=== PATIENT | male | born 1975 | race Caucasian/White ===

== ENCOUNTER 2019-02-16 14:46 | Inpatient (IN) | payer OTHER ==
[2019-02-16 20:14] VITALS: BMI 23.8
--- NOTE | 2019-02-16 21:33 | HP ---
CIWA Score Nausea/Vomitin Muscle Tremors: 4-Moderate,w/Arms Extend Anxiety: 3 Agitation: 4-Moderately Restless Paroxysmal Sweats: 3 (Increased facial moisture) Orientation: 1-Uncertain about Date Tacttile Disturbances: 0-None Auditory Disturbances: 0-None Visual Disturbances: 0-None Headache: 0-None Present CIWA-Ar Total Score: 18 - Admission Criteria OASAS Guidelines: Admission for Medically Managed Detox: Requires at least one of the followin. CIWA greater than 12 2. Seizures within the past 24 hours 3. Delirium tremens within the past 24 hours 4. Hallucinations within the past 24 hours 5. Acute intervention needed for co occurring medical disorder 6. Acute intervention needed for co occurring psychiatric disorder 7. Severe withdrawal that cannot be handled at a lower level of care (continued vomiting, continued diarrhea, abnormal vital signs) requiring intravenous medication and/or fluids 8. Patient presents the following: CIWA greater than 12 Admission Criteria Met: Admission criteria met Admission ROS [facility] Chief Complaint: Alcohol withdrawal. Allergies/Adverse Reactions: Allergies Allergy/AdvReac Type Severity Reaction Status Date / Time No Known Allergies Allergy Verified 02/16/19 20:06 History of Present Illness: [facility] presentation for this 43 you w/ alcohol withdrawal requesting admission to detox. Alcohol use since age 28. Current use 1 pint/day x 8 years. Sometimes drinks more. Nicotine use since age 40. Usually only smokes when drinks. Denies seizures or blackouts. Longest length of sobriety 2 months - 1 year ago. PMHx: Kidney stones- last about 8 months ago: Urine problems on tamsulosin; Back pain x 8 years = states arthritis; mild asthma 1 year ago - rx'd w/ MDI - but no repeat wheeze/SOB. MHHx: Nervousness/anxiety; Occ depression. Denies thoughts of harming self or others. Patient Name: Barb Maynard Date: 1975 Address: [address] [place] [address] Sex: Male Rx Written Rx Dispensed Drug Quantity Days Supply Prescriber Name 04/07/2018 04/07/2018 tramadol hcl 50 mg tablet 60 30 Vera Begum MD Search Terms: Barb Maynard, 1975 Search Date: 02/16/2019 09:31:39 PM States Searched: [place], [place], [place], [place], [place], [place], [place] The Drug Utilization Report below displays the controlled substance prescriptions, if any, that were dispensed in the indicated state(s). The information displayed on this report is compiled from requests submitted to other states' PMPs, and accurately reflects the information as returned by them. Blank brandon indicate data not provided by other state. This report was requested by: Sravani Hsu | Reference #: [id number] Exam Limitations: No Limitations - Ebola screening Have you traveled outside of the country in the last 21 days: No (N) Have you had contact with anyone from an Ebola affected area: No Have you been sick,other than usual withdrawal symptoms: No (Denies recent exposure to measles. ) Do you have a fever: No - Review of Systems Constitutional: Chills, Diaphoresis EENT: reports: Blurred Vision Respiratory: reports: No Symptoms reported Cardiac: reports: No Symptoms Reported GI: reports: Nausea, Indigestion (Heart burn only when drinking), Abdominal cramping : reports: Burning (w/ urination x 1 week) Musculoskeletal: reports: Back Pain (Chronic LBP x 8 years. Increases w/ lifting/bending, sitting too long. Improves w/ rest. Currently sharp and a "10") Integumentary: reports: No Symptoms Reported Neuro: reports: Tremors, Weakness (whole body feels weak.) Endocrine: reports: Increased Thirst Hematology: reports: No Symptoms Reported Psychiatric: reports: Judgement Intact, Orientated x3 (Missed date by 1), Anxious Patient History - PPD History Previous Implant?: Yes Documented Results: Negative w/o proof Implanted On Prior [facility] Admission?: Yes PPD to be Administered?: Yes - Smoking Cessation Smoking history: Current every day smoker Have you smoked in the past 12 months: Yes Aproximately how many cigarettes per day: 4 Hx Chewing Tobacco Use: No Initiated information on smoking cessation: Yes 'Breaking Loose' booklet given: 02/16/19 - Substance & Tx. History Hx Alcohol Use: Yes Hx Substance Use: Yes Substance Use Type: Alcohol Hx Substance Use Treatment: No (Has tried to stop on own) - Substances abused Alcohol Substance route: Oral Frequency: Daily Amount used: 1 [place] Age of first use: 28 Date of last use: 02/16/19 Admission Physical Exam BHS - Vital Signs Vital Signs: Vital Signs - 24 hr 02/16/19 20:10 Temperature 98.7 F Pulse Rate 92 H Respiratory 18 Rate Blood Pressure 155/102 H - Physical General Appearance: Yes: Nourished, Moderate Distress, Tremorous, Sweating ( Increased facial moisture) HEENTM: Yes: EOMI, Hearing grossly Normal, Normocephalic, Normal Voice, JEROD, Pharynx Normal Respiratory: Yes: Lungs Clear, Normal Breath Sounds, No Respiratory Distress Neck: Yes: No masses,lesions,Nodules, Supple Breast: Yes: Breast Exam Deferred Cardiology: Yes: Regular Rhythm, Regular Rate, S1, S2 Abdominal: Yes: Flat, Soft, Increased Bowel Sounds, Tenderness (LUQ and mid- lower quad tenderness upon palpation) Genitourinary: Yes: Burning Back: Yes: Normal Inspection Musculoskeletal: Yes: full range of Motion, Gait Steady Extremities: Yes: Normal Capillary Refill, Tremors (Tremors at rest which grossly increase w/ arm elevation) 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 NML intact, Alert, Motor Strength 5/5, Normal Response Integumentary: Yes: Normal Color, Warm, Diaphoresis (Increased facial moisture) Lymphatic: Yes: Within Normal Limits - Diagnostic (1) Alcohol dependence with uncomplicated withdrawal Current Visit: Yes Status: Acute (2) Nicotine abuse Current Visit: Yes Status: Chronic (3) History of kidney stones Current Visit: No Status: Chronic (4) History of asthma Current Visit: No Status: Chronic (5) Abdominal tenderness Current Visit: Yes Status: Chronic Qualifiers: Abdominal location: unspecified location Presence of rebound: absent Qualified Code(s): R10.819 - Abdominal tenderness, unspecified site Comment: LUQ and lower mid-quad tenderness w/o guarding or rebound (6) Urinary problem in male Current Visit: Yes Status: Chronic Comment: Urinary burning, on tamsulosin Cleared for Admission S - Detox or Rehab S Level of Care: Medically Managed Detox Regimen/Protocol: Librium Claeared for Rehab Admission: No Inpatient Rehab Admission - Rehab Decision to Admit Inpatient rehab admission?: No
[2019-02-16] MEDS ORDERED: BISMUTH SUBSALICYLATE 524 MG/30 ML UD PO PRN (22:04)
[2019-02-16] MEDS ORDERED: MENTHOL/PHENOL 1 EACH UD MM PRN (22:04)
[2019-02-16] MEDS ORDERED: IBUPROFEN 400 MG TABLET (FP) PO PRN (22:04)
[2019-02-16] MEDS ORDERED: MAGNESIUM HYDROX 2400MG/30ML ORAL SUSPENSION 30 ML CUP PO PRN (22:04)
[2019-02-16] MEDS ORDERED: ACETAMINOPHEN 325 MG TABLET (FP) PO PRN ×2 (22:04)
[2019-02-16] MEDS ORDERED: MAGNESIUM CITRATE 300 ML BOTTLE PO PRN (22:04)
[2019-02-16] MEDS ORDERED: METHOCARBAMOL 500 MG TABLET PO PRN (22:04)
[2019-02-16] MEDS ORDERED: chlordiazePOXIDE HCL 25 MG CAPSULE PO PRN (22:04)
[2019-02-16] MEDS ORDERED: MELATONIN 5 MG TABLETS PO PRN (22:04)
[2019-02-16] MEDS ORDERED: NAPROXEN 500 MG TABLET (FP) PO PRN (22:08)
[2019-02-16] MEDS: chlordiazePOXIDE HCL 25 MG CAPSULE PO SCH (23:55)
[2019-02-17] MEDS: chlordiazePOXIDE HCL 25 MG CAPSULE PO SCH ×4 (05:52→22:12)
[2019-02-17] MEDS: NICOTINE POLACRILEX 2 MG GUM BUC PRN ×2 (06:00→18:46)
[2019-02-17] MEDS: TAMSULOSIN HCL 0.4 MG CAP PO SCH (09:26)
[2019-02-17] MEDS: PRENATAL VITAMINS W/ FOLIC ACID TABLET (FP) PO SCH (09:27)
[2019-02-17 10:52] LABS: ALBUMIN 4.5 g/dl (3.4-5.0); BILIRUBIN,TOTAL 1.1 mg/dL (0.2-1); BLOOD UREA NITROGEN 16.2 mg/dL (7-18); CALCIUM 9.5 mg/dL (8.5-10.1); CREATININE 0.9 mg/dL (0.55-1.3); POTASSIUM 3.6 mmol/L (3.5-5.1); TOT PROT 8.7 g/dl (6.4-8.2)
[2019-02-17 11:07] LABS: URINE APPEARANCE CLEAR; URINE BILIRUBIN NEGATIVE (NEGATIVE); URINE COLOR YELLOW; URINE GLUCOSE (UA) NEGATIVE (NEGATIVE); URINE KETONE NEGATIVE (NEGATIVE); URINE LEUK ESTERASE NEGATIVE (NEGATIVE); URINE NITRITE NEGATIVE (NEGATIVE); URINE PROTEIN NEGATIVE (NEGATIVE); URINE UROBILINOGEN 0.2 mg/dL (0.2-1.0)
[2019-02-17 11:16] LABS: HEMATOCRIT 50.4 % (35.4-49); HEMOGLOBIN 17.2 GM/dL (11.7-16.9); MCH 31.9 pg (25.7-33.7); MEAN CELL VOLUME 93.8 fl (80-96); MEAN PLT VOLUME 8.1 fl (7.5-11.1); RBC 5.38 M/mm3 (4.00-5.60); RDW 13.4 % (11.9-15.9); WHITE BLOOD COUNT 6.6 K/mm3 (4.0-10.0)
[2019-02-17 11:33] LABS: PLATELET COUNT 257 K/MM3 (134-434)
--- NOTE | 2019-02-17 12:44 | PN ---
S CIWA - CIWA Score Nausea/Vomitin-No Nausea/No Vomiting Muscle Tremors: 3 Anxiety: 2 Agitation: 2 Paroxysmal Sweats: 2 Orientation: 0-Oriented Tacttile Disturbances: 0-None Auditory Disturbances: 0-None Visual Disturbances: 0-None Headache: 2-Mild CIWA-Ar Total Score: 11 S Progress Note (SOAP) Subjective: c/o headache, sweats, shakes, and anxiety. Objective: 02/17/19 12:43 Vital Signs 02/17/19 02/17/19 06:26 09:42 Temperature 96.9 F L 98.6 F Pulse Rate 86 92 H Respiratory 18 18 Rate Blood Pressure 130/89 126/89 Lab Results WBC 6.6 K/mm3 (4.0-10.0) 02/17/19 07:40 RBC 5.38 M/mm3 (4.00-5.60) 02/17/19 07:40 Hgb 17.2 GM/dL (11.7-16.9) H 02/17/19 07:40 Hct 50.4 % (35.4-49) H 02/17/19 07:40 MCV 93.8 fl (80-96) 02/17/19 07:40 MCHC 34.0 g/dl (32.0-35.9) 02/17/19 07:40 RDW 13.4 % (11.9-15.9) 02/17/19 07:40 Plt Count 257 K/MM3 (134-434) 02/17/19 07:40 Sodium 138 mmol/L (136-145) 02/17/19 07:40 Potassium 3.6 mmol/L (3.5-5.1) 02/17/19 07:40 Chloride 100 mmol/L (98-107) 02/17/19 07:40 Carbon Dioxide 32 mmol/L (21-32) 02/17/19 07:40 Anion Gap 6 MMOL/L (8-16) L 02/17/19 07:40 BUN 16.2 mg/dL (7-18) 02/17/19 07:40 Creatinine 0.9 mg/dL (0.55-1.3) 02/17/19 07:40 Random Glucose 77 mg/dL (74-106) 02/17/19 07:40 Calcium 9.5 mg/dL (8.5-10.1) 02/17/19 07:40 Labs noted. Assessment: 02/17/19 12:43 AOX3, in no acute distress Full ROM, ambulating in the unit. Withdrawal symptoms. Plan: continue detox. increase fluids.
[2019-02-17] MEDS: THIAMINE HCL 100 MG TABLET (FP) PO SCH (22:12)
[2019-02-18] MEDS: chlordiazePOXIDE HCL 25 MG CAPSULE PO SCH ×3 (05:22→17:30)
[2019-02-18] MEDS: PRENATAL VITAMINS W/ FOLIC ACID TABLET (FP) PO SCH (10:26)
[2019-02-18] MEDS: TAMSULOSIN HCL 0.4 MG CAP PO SCH (10:26)
[2019-02-18] MEDS: NICOTINE POLACRILEX 2 MG GUM BUC PRN ×2 (11:12→19:50)
--- NOTE | 2019-02-18 13:50 | PN ---
S CIWA - CIWA Score Nausea/Vomitin-Mild Nausea/No Vomiting Muscle Tremors: 2 Anxiety: 2 Agitation: 2 Paroxysmal Sweats: 1-Minimal Palms Moist Orientation: 0-Oriented Tacttile Disturbances: 0-None Auditory Disturbances: 0-None Visual Disturbances: 0-None Headache: 2-Mild CIWA-Ar Total Score: 10 BHS Progress Note (SOAP) Subjective: CO POOR SLEEP ANXIETY SHAKINESS Objective: 02/18/19 13:48 Laboratory Tests 02/17/19 02/17/19 02/17/19 07:40 07:40 07:40 WBC 6.6 RBC 5.38 Hgb 17.2 H Hct 50.4 H MCV 93.8 MCH 31.9 MCHC 34.0 RDW 13.4 Plt Count 257 MPV 8.1 Sodium 138 Potassium 3.6 Chloride 100 Carbon Dioxide 32 Anion Gap 6 L BUN 16.2 Creatinine 0.9 Est GFR (CKD-EPI)AfAm 119.13 Est GFR (CKD-EPI)NonAf 102.79 Random Glucose 77 Calcium 9.5 Total Bilirubin 1.1 H AST 87 H ALT 100 H Alkaline Phosphatase 115 Total Protein 8.7 H Albumin 4.5 Total Amylase 36 Urine Color Urine Appearance Urine pH Ur Specific [place] Urine Protein Urine Glucose (UA) Urine Ketones Urine Blood Urine Nitrite Urine Bilirubin Urine Urobilinogen Ur Leukocyte Esterase RPR Titer Nonreactive 02/17/19 09:00 WBC RBC Hgb Hct MCV MCH MCHC RDW Plt Count MPV Sodium Potassium Chloride Carbon Dioxide Anion Gap BUN Creatinine Est GFR (CKD-EPI)AfAm Est GFR (CKD-EPI)NonAf Random Glucose Calcium Total Bilirubin AST ALT Alkaline Phosphatase Total Protein Albumin Total Amylase Urine Color Yellow Urine Appearance Clear Urine pH 6.0 Ur Specific [place] 1.015 Urine Protein Negative Urine Glucose (UA) Negative Urine Ketones Negative Urine Blood Negative Urine Nitrite Negative Urine Bilirubin Negative Urine Urobilinogen 0.2 Ur Leukocyte Esterase Negative RPR Titer Vital Signs - 24 hr 02/17/19 02/17/19 02/17/19 14:01 18:07 21:51 Temperature 96.5 F L 96.9 F L 98.7 F Pulse Rate 77 86 85 Respiratory 18 18 18 Rate Blood Pressure 130/87 113/67 112/75 02/18/19 02/18/19 02/18/19 00:30 03:30 06:46 Temperature 96.5 F L Pulse Rate 83 Respiratory 18 18 18 Rate Blood Pressure 100/67 02/18/19 02/18/19 09:09 13:14 Temperature 96.6 F L 98.5 F Pulse Rate 69 95 H Respiratory 20 16 Rate Blood Pressure 98/67 121/86 ALERT AMBULATING ORIENTED Assessment: 02/18/19 13:49 ETOH DEP IN WITHDRAWAL Plan: CONTINUE DETOX PROTOCOL
--- NOTE | 2019-02-18 16:54 | EKG ---
Test Reason : Blood Pressure : / mmHG Vent. Rate : 080 BPM Atrial Rate : 080 BPM P-R Int : 186 ms QRS Dur : 096 ms QT Int : 388 ms P-R-T Axes : 066 019 033 degrees QTc Int : 447 ms NORMAL SINUS RHYTHM WITH SINUS ARRHYTHMIA MINIMAL VOLTAGE CRITERIA FOR LVH, MAY BE NORMAL VARIANT BORDERLINE ECG NO PREVIOUS ECGS AVAILABLE Confirmed by MD FRED, SVITLANA ([id number]) on 02/18/2019 4:54:11 PM Referred By: Confirmed By:SVITLANA IBARRA MD
[2019-02-18] MEDS: chlordiazePOXIDE HCL 10 MG CAPSULE PO SCH (22:28)
[2019-02-18] MEDS: THIAMINE HCL 100 MG TABLET (FP) PO SCH (22:28)
[2019-02-18] MEDS ORDERED: chlordiazePOXIDE HCL 10 MG CAPSULE PO PRN (23:00)
[2019-02-19] MEDS: chlordiazePOXIDE HCL 10 MG CAPSULE PO SCH ×3 (06:31→17:14)
[2019-02-19] MEDS: PRENATAL VITAMINS W/ FOLIC ACID TABLET (FP) PO SCH (10:08)
[2019-02-19] MEDS: TAMSULOSIN HCL 0.4 MG CAP PO SCH (10:09)
[2019-02-19] MEDS: MAG HYDROX/AL HYDROX/SIMETH 30 ML UNIT-DOSE CUP PO PRN (10:39)
[2019-02-19] MEDS ORDERED: NICOTINE 14 MG/24 HOURS TOPICAL PATCH TD SCH (11:15)
[2019-02-19] MEDS: METHYL SALICYLATE/MENTHOL OINT 30 GM TUBE TP SCH ×2 (12:21→22:29)
--- NOTE | 2019-02-19 16:23 | PN ---
S CIWA - CIWA Score Nausea/Vomitin-No Nausea/No Vomiting Muscle Tremors: None Anxiety: 3 Agitation: 2 Paroxysmal Sweats: No Perspiration Orientation: 0-Oriented Tacttile Disturbances: 2-Mild Itch/Numbness/Burn Auditory Disturbances: 0-None Visual Disturbances: 2-Mild Sensitivity Headache: 0-None Present CIWA-Ar Total Score: 9 BHS Progress Note (SOAP) Subjective: Body Aches, Interrupted Sleep, Anxious. Objective: PATIENT A & O X 3, OBSERVED AMBULATING ON UNIT UNASSISTED. IN NO ACUTE DISTRESS. 02/19/19 16:21 Vital Signs Temperature 97.9 F 02/19/19 13:25 Pulse Rate 73 02/19/19 13:25 Respiratory Rate 18 02/19/19 13:25 Blood Pressure 135/97 02/19/19 13:25 O2 Sat by Pulse Oximetry (%) Laboratory Tests 02/17/19 02/17/19 02/17/19 07:40 07:40 07:40 WBC 6.6 RBC 5.38 Hgb 17.2 H Hct 50.4 H MCV 93.8 MCH 31.9 MCHC 34.0 RDW 13.4 Plt Count 257 MPV 8.1 Sodium 138 Potassium 3.6 Chloride 100 Carbon Dioxide 32 Anion Gap 6 L BUN 16.2 Creatinine 0.9 Est GFR (CKD-EPI)AfAm 119.13 Est GFR (CKD-EPI)NonAf 102.79 Random Glucose 77 Calcium 9.5 Total Bilirubin 1.1 H AST 87 H ALT 100 H Alkaline Phosphatase 115 Total Protein 8.7 H Albumin 4.5 Total Amylase 36 Urine Color Urine Appearance Urine pH Ur Specific [place] Urine Protein Urine Glucose (UA) Urine Ketones Urine Blood Urine Nitrite Urine Bilirubin Urine Urobilinogen Ur Leukocyte Esterase RPR Titer Nonreactive 02/17/19 09:00 WBC RBC Hgb Hct MCV MCH MCHC RDW Plt Count MPV Sodium Potassium Chloride Carbon Dioxide Anion Gap BUN Creatinine Est GFR (CKD-EPI)AfAm Est GFR (CKD-EPI)NonAf Random Glucose Calcium Total Bilirubin AST ALT Alkaline Phosphatase Total Protein Albumin Total Amylase Urine Color Yellow Urine Appearance Clear Urine pH 6.0 Ur Specific [place] 1.015 Urine Protein Negative Urine Glucose (UA) Negative Urine Ketones Negative Urine Blood Negative Urine Nitrite Negative Urine Bilirubin Negative Urine Urobilinogen 0.2 Ur Leukocyte Esterase Negative RPR Titer LABS NOTED. Assessment: 02/19/19 16:22 WITHDRAWAL SYMPTOMS. ELEVATED LIVER ENZYMES (AST, ALT). 02/19/19 16:23 Plan: CONTINUE DETOX.
[2019-02-19] MEDS: THIAMINE HCL 100 MG TABLET (FP) PO SCH (22:30)
[2019-02-19] MEDS ORDERED: chlordiazePOXIDE HCL 10 MG CAPSULE PO SCH (23:00)
[2019-02-20] MEDS: PRENATAL VITAMINS W/ FOLIC ACID TABLET (FP) PO SCH (09:23)
[2019-02-20] MEDS: TAMSULOSIN HCL 0.4 MG CAP PO SCH (09:24)
[2019-02-20] MEDS: MAG HYDROX/AL HYDROX/SIMETH 30 ML UNIT-DOSE CUP PO PRN (09:25)
[2019-02-20 09:44] VITALS: BP 122/87; PULSE 85; TEMP 99
--- NOTE | 2019-02-20 16:55 | DS ---
[facility] Detox Discharge Summary Admission Date: 02/16/19 Discharge Date: 02/20/19 - History Present History: Alcohol Dependence Additional Comments: PATIENT DENIES CURRENT WITHDRAWAL / DETOX SYMPTOMS AND REPORTS THAT HE FEELS WELL OVERALL AT TIME OF DISCHARGE FROM DETOX UNIT. PATIENT RETURNING HOME AND TO WORK. PATIENT WILL RETURN TO [facility] ([place], [place]), WHERE HAS PREVIOUSLY BEEN A CLIENT, FOR AFTERCARE. PATIENT ADVISED TO FOLLOW-UP WITH [facility] AFTER DISCHARGE FROM DETOX FOR GENERAL MEDICAL ASSESSMENT AND FOR ELEVATED LIVER ENZYMES NOTED ON DETOX ADMISSION LABORATORY ASSESSMENT AND FOR ABDOMINAL TENDERNESS THAT HE REPORTED ON DETOX ADMISSION MEDICAL ASSESSMENT. PATIENT VERBALIZED UNDERSTANDING OF ALL RECOMMENDATION PRESENTED TO HIM PRIOR TO DISCHARGE FROM DETOX UNIT. COPIES OF RESULTS OF ALL LABS DRAWN WHILE ADMITTED FOR DETOX GIVEN TO PATIENT AT TIME OF DISCHARGE FROM DETOX UNIT. PATIENT WAS DISCHARGED FORM DETOX UNIT IN STABLE MEDICAL CONDITION. Pertinent Past History: Nicotine Dependence, History Of Kidney Stones, Anxiety, Depression, History Of Arthritis, History Of Urinary Disorder, History Of Back Pain, History Of Abdominal Tenderness, Asthma. - Physical Exam Results Vital Signs: Vital Signs Temperature 99.0 F 02/20/19 09:44 Pulse Rate 85 02/20/19 09:44 Respiratory Rate 20 02/20/19 09:44 Blood Pressure 122/87 02/20/19 09:44 O2 Sat by Pulse Oximetry (%) Pertinent Admission Physical Exam Findings: WITHDRAWAL SYMPTOMS. Laboratory Tests 02/17/19 02/17/19 02/17/19 07:40 07:40 07:40 WBC 6.6 RBC 5.38 Hgb 17.2 H Hct 50.4 H MCV 93.8 MCH 31.9 MCHC 34.0 RDW 13.4 Plt Count 257 MPV 8.1 Sodium 138 Potassium 3.6 Chloride 100 Carbon Dioxide 32 Anion Gap 6 L BUN 16.2 Creatinine 0.9 Est GFR (CKD-EPI)AfAm 119.13 Est GFR (CKD-EPI)NonAf 102.79 Random Glucose 77 Calcium 9.5 Total Bilirubin 1.1 H AST 87 H ALT 100 H Alkaline Phosphatase 115 Total Protein 8.7 H Albumin 4.5 Total Amylase 36 Urine Color Urine Appearance Urine pH Ur Specific [place] Urine Protein Urine Glucose (UA) Urine Ketones Urine Blood Urine Nitrite Urine Bilirubin Urine Urobilinogen Ur Leukocyte Esterase RPR Titer Nonreactive 02/17/19 09:00 WBC RBC Hgb Hct MCV MCH MCHC RDW Plt Count MPV Sodium Potassium Chloride Carbon Dioxide Anion Gap BUN Creatinine Est GFR (CKD-EPI)AfAm Est GFR (CKD-EPI)NonAf Random Glucose Calcium Total Bilirubin AST ALT Alkaline Phosphatase Total Protein Albumin Total Amylase Urine Color Yellow Urine Appearance Clear Urine pH 6.0 Ur Specific [place] 1.015 Urine Protein Negative Urine Glucose (UA) Negative Urine Ketones Negative Urine Blood Negative Urine Nitrite Negative Urine Bilirubin Negative Urine Urobilinogen 0.2 Ur Leukocyte Esterase Negative RPR Titer LABS NOTED. - Treatment Hospital Course: Detox Protocol Followed, Detoxed Safely, Responded well, Discharged Condition Good Patient has Accepted a Rehab Referral to: PT. RETURNING TO [facility] ([place], [place]). - Medication Discharge Medications: Ambulatory Orders Tamsulosin HCl [Flomax] 0.4 mg PO DAILY 02/16/19 - Diagnosis (1) Alcohol dependence with uncomplicated withdrawal Status: Acute (2) Elevated liver enzymes Status: Acute (3) Abdominal tenderness Status: Chronic Qualifiers: Abdominal location: unspecified location Presence of rebound: absent Qualified Code(s): R10.819 - Abdominal tenderness, unspecified site (4) History of asthma Status: Chronic (5) History of kidney stones Status: Chronic (6) Nicotine abuse Status: Chronic (7) Urinary problem in male Status: Chronic - AMA Did Patient Leave Against Medical Advice: No
--- NOTE | 2019-02-20 16:58 | PN ---
S CIWA - CIWA Score Nausea/Vomitin-No Nausea/No Vomiting Muscle Tremors: None Anxiety: 0-No Anxiety, at Ease Agitation: 1-Slight > Activity Paroxysmal Sweats: No Perspiration Orientation: 0-Oriented Tacttile Disturbances: 0-None Auditory Disturbances: 0-None Visual Disturbances: 0-None Headache: 0-None Present CIWA-Ar Total Score: 1 BHS Progress Note (SOAP) Subjective: Patient denies current Withdrawal / Detox symptoms and reports that he feels well overall at this time. Objective: PATIENT A & O X 3, OBSERVED AMBULATING ON UNIT UNASSISTED. IN NO ACUTE DISTRESS. 02/20/19 16:56 Vital Signs Temperature 99.0 F 02/20/19 09:44 Pulse Rate 85 02/20/19 09:44 Respiratory Rate 20 02/20/19 09:44 Blood Pressure 122/87 02/20/19 09:44 O2 Sat by Pulse Oximetry (%) Laboratory Tests 02/17/19 02/17/19 02/17/19 07:40 07:40 07:40 WBC 6.6 RBC 5.38 Hgb 17.2 H Hct 50.4 H MCV 93.8 MCH 31.9 MCHC 34.0 RDW 13.4 Plt Count 257 MPV 8.1 Sodium 138 Potassium 3.6 Chloride 100 Carbon Dioxide 32 Anion Gap 6 L BUN 16.2 Creatinine 0.9 Est GFR (CKD-EPI)AfAm 119.13 Est GFR (CKD-EPI)NonAf 102.79 Random Glucose 77 Calcium 9.5 Total Bilirubin 1.1 H AST 87 H ALT 100 H Alkaline Phosphatase 115 Total Protein 8.7 H Albumin 4.5 Total Amylase 36 Urine Color Urine Appearance Urine pH Ur Specific [place] Urine Protein Urine Glucose (UA) Urine Ketones Urine Blood Urine Nitrite Urine Bilirubin Urine Urobilinogen Ur Leukocyte Esterase RPR Titer Nonreactive 02/17/19 09:00 WBC RBC Hgb Hct MCV MCH MCHC RDW Plt Count MPV Sodium Potassium Chloride Carbon Dioxide Anion Gap BUN Creatinine Est GFR (CKD-EPI)AfAm Est GFR (CKD-EPI)NonAf Random Glucose Calcium Total Bilirubin AST ALT Alkaline Phosphatase Total Protein Albumin Total Amylase Urine Color Yellow Urine Appearance Clear Urine pH 6.0 Ur Specific [place] 1.015 Urine Protein Negative Urine Glucose (UA) Negative Urine Ketones Negative Urine Blood Negative Urine Nitrite Negative Urine Bilirubin Negative Urine Urobilinogen 0.2 Ur Leukocyte Esterase Negative RPR Titer LABS NOTED. Assessment: 02/20/19 16:56 COMPLETION OF DETOX REGIMEN. Plan: SINCE PATIENT DENIES CURRENT WITHDRAWAL / DETOX SYMPTOMS AND REPORTS THAT HE FEELS WELL OVERALL, AT PATIENTS REQUEST, HE WAS GRANTED AN EARLY DISCHARGE FROM DETOX UNIT TODAY SO THAT HE MAY RETURN HOME AND TO WORK.
== END 2019-02-20 10:09 | disposition home or self-care (01) | DRG 775 ==
LOC: YASAS 14:46 → Y3N 23:03
PROVIDERS: ADMIT Surgery; ATTEND Surgery
PROC: HZ2ZZZZ Detoxification Services for Substance Abuse Treatment (ICD-10-PCS; principal; 2019-02-16)
DX: F10.230 Alcohol dependence with withdrawal, uncomplicated (principal); F17.210 Nicotine dependence, cigarettes, uncomplicated; F41.9 Anxiety disorder, unspecified; F32.9 Major depressive disorder, single episode, unspecified; R10.819 Abdominal tenderness, unspecified site; R94.5 Abnormal results of liver function studies; N39.9 Disorder of urinary system, unspecified; Z87.442 Personal history of urinary calculi; Z87.09 Personal history of other diseases of the respiratory system
CPT/HCPCS: 36415; 71045-TC-FY; 80053; 81003; 82150; 85027; 86593; 93005; 93010